=== PATIENT | male | born 1980 | race Caucasian/White ===

== ENCOUNTER → 2020-06-29 01:29 | Outpatient (CLI) | payer OTHER, SELFPAY ==
[2020-06-29 21:08] LABS: SARS-CoV-2 RNA PCR Negative
== END ==
PROVIDERS: PCP Family Medicine; Visit Provider Orthopaedic Surgery
DX: Z01.812 Encounter for preprocedural laboratory examination (principal); Z20.822 Contact with and (suspected) exposure to COVID-19
CPT/HCPCS: C9803; U0003; U0005

== ENCOUNTER 2020-06-30 00:52 | Day surgery (SDC) | payer OTHER, SELFPAY ==
[2020-06-28 14:00] VITALS: BMI 42.5
[2020-06-30] VITALS (9 sets, daily range): BP systolic 128–157; BP diastolic 69–96; PULSE 64–74; RESP 12–24; TEMP 36.5–37.2; O2SAT 94–100
--- NOTE | ~2020-06-30 | XR_ITS ---
XR surgery orthopedic DATE: 06/30/2020 17:02 INDICATION: ORIF fourth metacarpal fracture TECHNIQUE: AP and lateral spot C-arm images of the hand including the fourth metacarpal bone 4 seconds fluoroscopy time 0.4162 cGycm2 total DAP COMPARISON: 06/28/2020) FINDINGS: There is anatomic position and alignment at the transverse fracture of the midshaft of the fourth metacarpal following placement of a dorsal plate, secured by multiple posteroanteriorly direct ed screws. IMPRESSION: ORIF fourth metacarpal shaft fracture Reviewed, dictated and finalized at [facility]. Reviewed, dictated and finalized at location A.
[2020-06-30] MEDS: ACETAMINOPHEN 500 MG TABLET 1000 MG PO (13:00)
[2020-06-30] MEDS: KETOROLAC 15 MG/ML VIAL (*BKC) IV PUSH (13:09)
[2020-06-30] MEDS: LACTATED RINGERS 1,000 ML 30 ML IV CONT ×2 (13:10→16:04)
--- NOTE | 2020-06-30 14:02 | WPDANESEPPF ---
Anes - Initial Pre Proc Eval Procedure: Operation Date: 06/30/20 14:30 Proposed Procedures p Open Reduction Internal Fixation Of The Right Fourth Metacarpal - Dixon Lizarraga MD Date/Time: 06/30/20 14:02 Surgeon: Dixon Lizarraga MD Pre Op Diagnosis: Right 4th metacarpal fx Patient Data Age: 39 Gender: M Height: 6 ft 4 in Weight: 158.4 kg Last Vital Signs Temp 98.9 F 06/30/20 12:40 Pulse 64 06/30/20 12:40 Resp 16 06/30/20 12:40 BP 140/87 06/30/20 12:40 Pulse Ox 98 06/30/20 12:40 Allergies Allergy/AdvReac Type Severity Reaction Status Date / Time Penicillins Allergy Unknown Hives Verified 06/30/20 13:27 Home Medications Medication Instructions Recorded Confirmed Type rivaroxaban 10 mg tablet 10 mg PO DAILY 06/14/20 06/30/20 History Patient hx anesthesia problems: none Family hx anesthesia problems: none PMFSH Past Medical History Medical History (Updated 06/30/20 @ 14:02 by Abraham Adkins MD) BMI 32.0-32.9,adult H/O blood clots H/O traumatic brain injury had in the [employer] 2001 slipped on floor hitting head Inguinal hernia Family History Family History Father Diabetes mellitus Heart disease Hypertension Mother Obesity Asthma Sibling No problems noted. Social History Social History Smoking status: Never smoker Second hand tobacco smoke exposure: Yes Alcohol intake: current Drinks per week: 1 Substance use: never Substance use type: does not use Living arrangements: with family Additional occupation/education comments: [employer] Gender identity (if verbalized by the patient): Male Spiritual care concerns: No Anes - Eval Final PreProcedure Day of Procedure 06/30/20 14:02 Patient weight: morbidly obese Heart: regular rate and rhythm Lungs: clear to auscultation Airway: Mallampati scale class II Neurological: alert and oriented Last oral intake: >/= 8 hours ASA classification: III Emergent: no Anesthetic plan: proceed Anesthesia type and monitoring: general LMA and standard monitoring Informed Consent: The patient's anesthetic plan and its attendant risks and benefits were discussed with the patient/family/POA. Questions were solicited and answers provided to the satisfaction of the patient/family/POA.
--- NOTE | 2020-06-30 14:18 | WPDHPUPDATE1 ---
History and Physical Update Update Date/Time: 06/30/20 14:18 History and Physical has been reviewed, including an updated exam of the patient. There are NO changes in the patient's condition. Risks, benefits, and alternatives have been discussed and questions answered. Patient agrees to proceed with procedure.
[2020-06-30] MEDS: ceFAZolin SODIUM 1 GM VIAL 3 GM IV PUSH (14:45)
--- NOTE | 2020-06-30 16:12 | P.OP_ITS ---
Procedure Note - Detailed Date of procedure: 06/30/20 Pre-op diagnosis: Right 4th metacarpal fx Post-op diagnosis: same Procedure performed: ORIF right fourth metacarpal shaft fracture Description of procedure: The patient was identified and proper site identified. He was taken back to the operating room and transferred to the OR table placing him supine taking care to pad his torso and extremities. After general anesthetic induction and intubation, a nonsterile tourniquet was placed high in the right arm. The right arm was prepped and draped in usual sterile fashion. Extremity was exsanguinated and the tourniquet was inflated to 250 mmHg remaining up for about 50 minutes. Longitudinal incision was made dorsally over the fourth metacarpal shaft. Subcutaneous tissue was bluntly dissected protecting neurovascular structures. Extensor tendon was identified and retracted allowing access to the metacarpal shaft. There was some callus about the fracture site which was removed to allow for an anatomic reduction of the fracture. This was then secured with in appropriate length 2.0 plate from the Synthes hand set and secured with nonlocking and locking screws were following their position fluoroscopically. Overall reduction and hardware placement was assessed fluoroscopically and noted to be satisfactory. The wound was irrigated with sterile saline. Skin edges reapproximated with 4-0 Prolene suture and Steri-Strips were applied. The area around the metacarpal fracture at the surgical site was infiltrated with 5 mL of 1% plain lidocaine. Sterile dressing was applied. Tourniquet was released and a well-padded volar wrist splint was applied coming out to the metacarpal heads palmarly. He tolerated the procedure well. He was awakened, extubated, transferred to the [facility] and taken to recovery area in stable condition. There were no known intraoperative complications. Estimated blood loss was negligible. He received perioperative antibiotics. Anesthesia: GLMA Surgeon: Dixon Lizarraag MD Remote Recruiter: Shira Wheeler Estimated blood loss (mL): 1 Tourniquet time (min): 50 Drains: No Pathology: none sent Complications: No immediate complications Condition: stable Disposition: PACU
--- NOTE | 2020-06-30 16:18 | SUR.OPER ---
synthes hand set implants right hand 12 hole 2.0 plate 1 2.0x10mm cortex screw 1 2.0x15mm locking screw 1 2.0x13mm locking screw 1 2.0x16mm locking screw 1
[2020-06-30] MEDS: fentaNYL CITRATE INJ (*CRX) 100 MCG/2 ML VIAL 25 MCG IV PUSH ×6 (16:32→16:56)
== END 2020-06-30 18:19 | disposition home or self-care (01) ==
PROVIDERS: PCP Family Medicine; Visit Provider Orthopaedic Surgery
PROC: (CPT 25575; principal; 2020-06-30 14:30)
DX: S62.324A Displaced fracture of shaft of fourth metacarpal bone, right hand, initial encounter for closed fracture (principal); Z86.718 Personal history of other venous thrombosis and embolism; Z87.820 Personal history of traumatic brain injury; Z79.01 Long term (current) use of anticoagulants; E66.01 Morbid (severe) obesity due to excess calories; Z68.41 Body mass index [BMI] 40.0-44.9, adult; Y04.0XXA Assault by unarmed brawl or fight, initial encounter
CPT/HCPCS: 26615; A9270; C9803; J0690; J1100; J1885; J2250; J2405; J2704; J3010; J7120; U0003; U0005

== ENCOUNTER 2021-04-07 10:33 | Outpatient (CLI) | payer OTHER, SELFPAY ==
--- NOTE | ~2021-04-07 | XR_ITS ---
XR chest 2V DATE: 04/07/2021 10:45 INDICATION: Cough TECHNIQUE: PA and lateral views COMPARISON: May 03, 2017 two-view chest FINDINGS: Borderline heart size. No hilar or mediastinal enlargement. No pulmonary infiltrate or cons olidation, pleural effusion or pulmonary vascular congestion or pneumothorax. IMPRESSION: No active pulmonary disease Reviewed, dictated and finalized at location A. INSPECTOR IMPRESSION: No active pulmonary disease
[2021-04-07 10:57] LABS: Hematocrit 41.5 % (42.0-52.0); Hemoglobin 14.2 g/dL (14.0-18.0); Mean Corpuscular HGB Conc 34.2 g/dl (32-36); Mean Corpuscular Hemoglobin 29.2 pg (26-34); Mean Corpuscular Volume 85.4 fl (80-100); Mean Platelet Volume 8.8 fl (7.4-10.4); Platelet Count Result 253 k/mm3 (150-375); Red Blood Count 4.86 M/mm3 (4.6-6.20); Red Cell Distribution Width 13.4 % (11.5-14.5); White Blood Count 5.3 K/mm3 (4.5-10.0)
[2021-04-07 11:10] LABS: Alanine Aminotransferase 58 U/L (4-50); Albumin Level 4.4 g/dL (3.5-5.1); Alkaline Phosphatase 71 U/L (38-126); Anion Gap 7 mmol/L (8-16); Aspartate Amino Transferase 36 U/L (17-59); Bilirubin,Total 0.5 mg/dL (0.2-1.3); Blood Urea Nitrogen 20 mg/dL (9-20); Calcium 8.8 mg/dL (8.4-10.2); Carbon Dioxide 27 mmol/L (22-30); Chloride 104 mmol/L (98-107); Cholesterol 197 mg/dL (0-200); Estimated Glomerular Filt Rate > 60; Glucose 94 mg/dL (65-110); HDL Direct 42 mg/dL; Potassium 3.8 mmol/L (3.4-5.0); Sodium 138 mmol/L (137-145); Triglycerides 81 mg/dL (<150)
[2021-04-07 11:21] LABS: LDL Cholesterol Direct 123 mg/dL
[2021-04-07 11:41] LABS: Prostate Specific Antigen 0.4 ng/mL (< OR = 4.0)
== END 2021-04-07 10:34 | disposition home or self-care (01) ==
LOC: ANHIMG 10:36
PROVIDERS: PCP Family Medicine; Visit Provider Nurse Practitioner Family
DX: Z12.5 Encounter for screening for malignant neoplasm of prostate (principal); R05.9 Cough, unspecified; I10 Essential (primary) hypertension
CPT/HCPCS: 36415; 71046; 80053; 80061; 84153; 84443; 85027; G0103

== ENCOUNTER 2021-04-26 08:26 | Outpatient (CLI) | payer OTHER, SELFPAY ==
--- NOTE | 2021-04-26 09:11 | ECHO_ITS ---
Patient Info Name: Bassam Arciniega Age: 40 years : 1980 Gender: Male Ht: 75 in Wt: 339 lbs BSA: 2.92 m2 HR: 64 bpm BP: 148 / 102 mmHg Technical Quality: Fair Exam Date: 04/26/2021 9:30 AM Exam Location: [facility] Pulmonary Patient Status: Outpatient Admit Date: 04/26/2021 Staff Ordering Physician: Aaliyah Maurice NP Clinical Research Physician: Guy Pena RDCS, RT Attending Provider: Aaliyah Maurice NP Referring Physician: Kaylene CLEANING; Exam Type: CA echo doppler color flow Study Info Indications I10 - Essential (primary) hypertension Complete two-dimensional, color flow and Doppler transthoracic echocardiogram is performed. Strain analysis performed. Summary 1. Complete two-dimensional, color flow and Doppler transthoracic echocardiogram is performed. 2. Left ventricular chamber dimension is normal. 3. Left ventricular systolic function is normal, estimated at 60-65%. 4. There is mildly increased left ventricular wall thickness. 5. The left ventricular diastolic function is normal. 6. E/e' 7 is not elevated. 7. There is trace mitral valve regurgitation. 8. Dilated inferior vena cava with >50% collapse upon inspiration consistent with elevated right atrial pressure, 10 mmHg. Left Ventricle E/e' 7 is not elevated. Left ventricular chamber dimension is normal. Left ventricular systolic function is normal, estimated at 60-65%. There is mildly increased left ventricular wall thickness. The left ventricular diastolic function is normal. Right Ventricle Right ventricular systolic function is normal based on normal TAPSE 2.0 cm. Right ventricular chamber dimension is not well visualized. Left Atria Left atrial chamber dimension is normal. Right Atria Right atrial chamber dimension is normal. Aortic Valve The aortic valve is trileaflet. There is no aortic valve stenosis. There is no aortic valve regurgitation. Pulmonic Valve There is no pulmonic regurgitation. Mitral Valve There is no mitral valve stenosis. There is trace mitral valve regurgitation. Tricuspid Valve There is no tricuspid valve regurgitation. Pericardium/Pleural There is no pericardial effusion. Inferior Vena Cava Dilated inferior vena cava with >50% collapse upon inspiration consistent with elevated right atrial pressure, 10 mmHg. Aorta The aortic root size at the sinus of Valsalva is normal. Left Ventricular Outflow Tract Name Value Normal LVOT 2D LVOT Diameter 2.2 cm LVOT Doppler LVOT Peak Gradient 3 mmHg LVOT Mean Gradient 2 mmHg LVOT VTI 20 cm LVOT VTI/AV VTI Ratio 1.0 LVOT Stroke Volume 76 ml LVOT CO 4.5 l/min LVOT CI 1.5 l/min/m2 Mitral Valve Name Value Normal MV Doppler
--- NOTE | 2021-04-26 09:17 | EST_ITS ---
Patient Info Name: Bassam Arciniega Age: 40 years : 1980 Gender: Male Ht: 75 in Wt: 339 lbs BSA: 2.92 m2 HR: 70 bpm BP: 150 / 89 mmHg Heart Rhythm: Sinus Rhythm Exam Date: 04/26/2021 9:59 AM Exam Location: [facility] Stress Patient Status: Outpatient Admit Date: 04/26/2021 Staff Ordering Physician: Aaliyah Maurice NP Attending Provider: Aaliyah Maurice NP Exercise Technologist: Brianna Hughes CT Exercise Physician: Itz Lam DO Exam Type: CA stress test treadmill Study Info Indications R06.02 - Shortness of breath A treadmill exercise stress test was performed. Summary 1. 1. Negative Ramakrishna exercise stress test for ischemic ST changes by ECG criteria. 2. 2. Reduced functional capacity, achieving 10 METs of workload. 3. 3. Baseline hypertension with hypertensive response to exercise. 4. 4. Appropriate HR response to exercise. 5. 5. Appropriate HR recovery at 1 minute post exercise. 6. 6. No imaging with stress testing. 7. 7. Patient informed of the above results. Protocol: Ramakrishna Stress ECG Details Stage: REST Duration (min): 1 min : 57 sec Speed (mph): 0.0 Grade (%): 0 HR (bpm): 65 SBP (mmHg): 150 DBP (mmHg): 89 METS: --- Stage: REST Duration (min): 8 min : 12 sec Speed (mph): 0.0 Grade (%): 0 HR (bpm): 73 SBP (mmHg): 150 DBP (mmHg): 89 METS: --- Stage: STAGE 1 Duration (min): 1 min : 0 sec Speed (mph): 1.7 Grade (%): 10 HR (bpm): 94 SBP (mmHg): 150 DBP (mmHg): 89 METS: --- Stage: STAGE 1 Duration (min): 2 min : 0 sec Speed (mph): 1.7 Grade (%): 10 HR (bpm): 116 SBP (mmHg): 150 DBP (mmHg): 89 METS: --- Stage: STAGE 1 Duration (min): 3 min : 0 sec Speed (mph): 1.7 Grade (%): 10 HR (bpm): 117 SBP (mmHg): 180 DBP (mmHg): 67 METS: --- Stage: STAGE 2 Duration (min): 1 min : 0 sec Speed (mph): 2.5 Grade (%): 12 HR (bpm): 130 SBP (mmHg): 180 DBP (mmHg): 67 METS: --- Stage: STAGE 2 Duration (min): 2 min : 0 sec Speed (mph): 2.5 Grade (%): 12 HR (bpm): 141 SBP (mmHg): 175 DBP (mmHg): 88 METS: --- Stage: STAGE 2 Duration (min): 3 min : 0 sec Speed (mph): 2.5 Grade (%): 12 HR (bpm): 143 SBP (mmHg): 175 DBP (mmHg): 88 METS: --- Stage: STAGE 3 Duration (min): 1 min : 0 sec Speed (mph): 3.4 Grade (%): 14 HR (bpm): 154 SBP (mmHg): 217 DBP (mmHg): 99 METS: --- Stage: STAGE 3 Duration (min): 2 min : 0 sec Speed (mph): 3.4 Grade (%): 14 HR (bpm): 161 SBP (mmHg): 217 DBP (mmHg): 99 METS: --- Stage: STAGE 3 Duration (min): 3 min : 0 sec Speed (mph): 3.4 Grade (%): 14 HR (bpm): 172 SBP (mmHg): 212 DBP (mmHg): 82 METS: --- Stage: RECOVERY Duration (min): 0 min : 59 sec Speed (mph): 0.0 Grade (%): 0 HR (bpm): 145 SBP (mmHg):
--- NOTE | 2021-04-27 16:12 | WPDHOLTEREM ---
Holter/Event Monitor Holter/Event Monitor Date of procedure: 04/26/21 Holter/Event Procedure: 24 Hr Holter Monitor Indications: Palpitations Conclusion: 1. 24 hour holter monitor on 04/26/21. 2. Underlying rhythm is sinus rhythm. HR range 48-154 bpm; average HR 79 bpm. HR at 154 bpm was at 11:53. 3. There are 11 premature supraventricular complexes. No supraventricular tachycardia. 4. There are 12 premature ventricular complexes. No ventricular tachycardia. 5. No sinoatrial or atrioventricular blocks. No significant pauses greater than 2 seconds. 6. No symptoms available for correlation.
== END 2021-04-26 08:27 | disposition home or self-care (01) ==
PROVIDERS: PCP Family Medicine; Visit Provider Nurse Practitioner Family
DX: R00.2 Palpitations (principal); I10 Essential (primary) hypertension
CPT/HCPCS: 93017; 93225; 93226; 93306

== ENCOUNTER → 2021-05-09 09:55 | Outpatient (CLI) | payer SELFPAY ==
--- NOTE | ~2021-05-09 | XR_ITS ---
EXAMINATION: XR shoulder LT min 2V INDICATION: Left shoulder pain TECHNIQUE: Four views of the left shoulder are submitted. COMPARISON: None FINDINGS: Normal alignment. No fracture. There is mild glenohumeral and acromioclavicular joint osteo arthritis. Soft tissues are unremarkable. IMPRESSION: 1. No acute osseous abnormality. Reviewed, dictated and finalized at location F. [employer]
== END ==
PROVIDERS: PCP Family Medicine; Visit Provider Nurse Practitioner Family
DX: M19.012 Primary osteoarthritis, left shoulder (principal)
CPT/HCPCS: 73030

== ENCOUNTER → 2021-07-04 12:07 | Outpatient (CLI) | payer OTHER, SELFPAY ==
--- NOTE | ~2021-07-04 | MR_ITS ---
EXAMINATION: MR shoulder LT wo con DATE: 07/04/2021 12:57 INDICATION: Left shoulder pain TECHNIQUE: Magnetic resonance imaging (MRI) of the left shoulder was performed without intravenous co ntrast. Sequences included axial PD-weighted FS FSE, coronal oblique PD-weighted FS FSE, coronal obli que T2-weighted FS FSE, sagittal PD-weighted FS FSE, and sagittal T1-weighted SE. COMPARISON: None. FINDINGS: Coracoacromial arch: The acromion undersurface is curved in morphology (type II). The coracoacromial ligament is normal. M ild acromioclavicular osteoarthritis. Rotator cuff: Mild supraspinatus tendinopathy without discrete tear. The infraspinatus, teres minor and subscapular is tendons are normal. Normal rotator cuff muscle bulk and signal. Biceps tendon, glenoid labrum and glenohumeral cartilage: Long head of the biceps tendon is normal. Glenoid labrum is normal. Mild partial-thickness cartilage loss with smooth chondral surface along the posterior aspect of the glenoid and at the cephalad aspec t of the humeral head. Fluid: Small amount of fluid in the long head biceps tendon sheath which is disproportionate to the physiolo gic amount fluid in the glenohumeral joint consistent with mild tenosynovitis. No loose osteochondral bodies. No abnormal increased fluid signal in the subacromial/subdeltoid bursa to suggest bursitis. Bones: Normal marrow signal with no edema, fracture or abnormal marrow replacing process. IMPRESSION: 1. Mild supraspinatus tendinopathy without discrete tear. 2. Mild left glenohumeral and acromioclavicular osteoarthritis. 2. Mild bicipital tenosynovitis. Reviewed, dictated and finalized at location A.
== END ==
PROVIDERS: PCP Family Medicine; Visit Provider Nurse Practitioner Family
DX: M19.012 Primary osteoarthritis, left shoulder (principal); M75.22 Bicipital tendinitis, left shoulder
CPT/HCPCS: 73221

== ENCOUNTER 2024-09-04 11:40 | Outpatient (CLI) | payer OTHER, SELFPAY ==
--- NOTE | 2024-09-04 11:47 | ECG_ITS ---
Test Date: 2024-09-04 12:05:54 Measurements Intervals [place] Rate: 59 P: 13 AK: 178 QRS: -1 QRSD: 128 T: 4 QT: 394 QTc: 393 Interpretive Statements SINUS BRADYCARDIA INTRAVENTRICULAR CONDUCTION DELAY DELAYED PRECORDIAL R/S TRANSITION MINIMAL Q WAVES- HIGH LATERAL LEADS BORDERLINE ECG No previous ECG available for comparison Electronically Signed On 09-04-2024 12:50:40 CDT by Itz Lam D.O.
[2024-09-04 12:12] LABS: Basophils Absolute Auto 0.1 K/mm3 (0.0-0.1); Basophils Percent Auto 1.5 % (0.2-1.2); Eosinophils Absolute Auto 0.2 K/mm3 (0-0.3); Eosinophils Percent Auto 3.4 % (0-4.4); Hematocrit 42.4 % (42.0-52.0); Hemoglobin 14.6 g/dL (14.0-18.0); Immature Granulocyte Absolute 0.05 K/mm3 (0.00-0.031); Immature Granulocyte Percent A 1.1 % (0-0.5); Lymphocytes Absolute Auto 0.87 K/mm3 (0.9-3.2); Lymphocytes Percent Auto 18.3 % (18.3-44.2); Mean Corpuscular HGB Conc 34.4 g/dl (32-36); Mean Corpuscular Hemoglobin 29.3 pg (26-34); Mean Platelet Volume 8.9 fl (7.4-10.4); Monocytes Absolute Auto 0.5 K/mm3 (0.1-0.6); Monocytes Percent Auto 9.7 % (2.6-8.5); Neutrophils Absolute Auto 3.2 K/mm3 (1.3-6.7); Platelet Count Result 262 k/mm3 (150-375); Red Blood Count 4.99 M/mm3 (4.6-6.20); Red Cell Distribution Width 13.2 % (11.5-14.5); White Blood Count 4.8 K/mm3 (4.5-10.0)
[2024-09-04 12:21] LABS: Anion Gap 9 mmol/L (4-12); Blood Urea Nitrogen 20 mg/dL (9-20); Calcium 9.4 mg/dL (8.4-10.2); Carbon Dioxide 25 mmol/L (22-30); Chloride 103 mmol/L (98-107); Estimated Glomerular Filt Rate > 60; Glucose 89 mg/dL (65-110); Potassium 3.9 mmol/L (3.4-5.0); Sodium 137 mmol/L (137-145)
== END 2024-09-04 11:41 | disposition home or self-care (01) ==
LOC: ANHSURGERY 11:47
PROVIDERS: PCP Family Medicine; Visit Provider Surgery
DX: K42.0 Umbilical hernia with obstruction, without gangrene (principal); I10 Essential (primary) hypertension
CPT/HCPCS: 36415; 80048; 85025; 86850; 86900; 86901; 93005

== ENCOUNTER 2024-09-08 00:39 | Day surgery (SDC) | payer OTHER, SELFPAY ==
--- NOTE | 2024-09-03 14:29 | PC.NURSE ---
Report to the Outpatient Waiting Room, entrance under the green pavilion located off [facility], at time __1200 on date _09/08/24 . Planned Procedure Time: __2:00 PM .? Time changes happen often and if your time is changed the preop area will call you the afternoon before. - You and your visitor will be asked to self-screen and do not enter if you have any COVID symptoms. Please call surgeon if you need to reschedule. - A mask is optional within the hospital at this time. Patients may have clear liquids (water, carbonated beverages, clear teas, apple juice) until 3 hours prior to surgery ( 11:00 AM) with a maximum of 20 ounces. - No food from midnight until time of surgery and no smoking, or chewing tobacco (or any form of nicotine). No chewing gum, candy or mints. Take only the following medications with a SIP of water on the morning of surgery: NONE DO NOT STOP ANY OF YOUR OTHER PRESCRIPTION MEDICATIONS PRIOR TO SURGERY EXCEPT THE FOLLOWING Hold all vitamins and supplements for 3 days per anesthesiologist. Medications to discontinue per physician PT STATES HOLD XARELTO 2 DAYS PRE OP PRE LANE Date to take last dose 09/05/24 Please no make-up, nail cypriot, hairspray, perfume, deodorant, or body powder the day of surgery.? No jewelry (including any body piercings) or valuables the day of surgery, leave them at home.? Please take a shower or bath the night before, or the morning of, surgery with an antibacterial soap.? Wear comfortable, loose fitting clothing.? Children are encouraged to wear pajamas. - Jewelry must be removed prior to entering the operating room.? Rings and piercings that are not removed may be cut off. - The hospital will not accept responsibility for valuables.? - Please leave all valuables, including medications, at home the day of surgery. If you are going home after surgery, a licensed city route driver must drive you home.? - NO public transportation without another adult if you receive anesthesia. - We recommend that an adult stay with you for 24 hours following discharge. - We also recommend that you do not drive, make important decision, drink alcoholic beverages, or take any drugs that were not prescribed by your health care provider for at least 24 hours after your discharge time. For Pediatric surgeries, we recommend two adults accompany the child home. Follow any additional instructions given to you from your surgeon. Telephone instructions given to __PATIENT and asked if any additional questions and then verbalized understanding. Patient advised to call surgeon office or pre surgery nurse liaison [phone] if any additional questions.
[2024-09-03 14:40] VITALS: BMI 43.7
[2024-09-08] VITALS (8 sets, daily range): BP systolic 122–160; BP diastolic 67–95; PULSE 58–72; RESP 15–18; TEMP 36.3–36.9; O2SAT 95–100
[2024-09-08] MEDS: ACETAMINOPHEN 500 MG TABLET 1000 MG PO (13:10)
--- NOTE | 2024-09-08 13:11 | WPDANESEPPF ---
Anes - Initial Pre Proc Eval Procedure: Operation Date: 09/08/24 14:00 Proposed Procedures p Robotic Repair Incarcerated Umbilical Hernia with Mesh - Js Mendosa MD Date/Time: 09/08/24 13:11 Surgeon: Js Mendosa MD Pre Op Diagnosis: incarcerated umb hernia Patient Data Age: 43 Gender: M Height: 1.91 m Weight: 169 kg Last Vital Signs Temp 36.9 C 09/08/24 13:05 Pulse 65 09/08/24 13:05 Resp 16 09/08/24 13:05 BP 160/92 H 09/08/24 13:05 Pulse Ox 100 09/08/24 13:05 O2 Del Method Room Air 09/08/24 13:05 Allergies Allergy/AdvReac Type Severity Reaction Status Date / Time Penicillins Allergy Unknown Hives Verified 09/08/24 13:03 Home Medications ?Medication ?Instructions ?Recorded ?Confirmed ?Type rivaroxaban 20 mg tablet (Xarelto) See Rx Instructions .Route 01/20/24 09/08/24 Rx .COMPLEX #90 tabs diltiazem HCl 180 mg 180 mg PO HS 06/03/24 09/08/24 History capsule,extended release 24 hr, controlled (DILT-XR) lisinopril 10 mg tablet 10 mg PO HS 09/03/24 09/08/24 History Patient hx anesthesia problems: none Family hx anesthesia problems: none Results Review: All pre-operative results and documents have been reviewed as part of the pre-operative evaluation. [facility] Past Medical History Medical History (Updated 08/17/24 @ 09:50 by Chelly Varner CMA) Hypertension Abdominal pain Umbilical pain Cardiomegaly Excessive daytime sleepiness Wellness examination Work related injury Injury of right hand Pain of left shoulder joint on movement Encounter for screening for malignant neoplasm of prostate Encounter for screening for malignant neoplasm of prostate Elevated ALT measurement Sinusitis Palpitations H/O traumatic brain injury had in the [employer] 2001 slipped on floor hitting head H/O blood clots Inguinal hernia BMI 32.0-32.9,adult Surgical History Surgical History (Updated 08/17/24 @ 09:16 by Chelly Varner CMA) H/O left inguinal hernia repair 2014 Hx of retained foreign body fully removed 1998 Fracture of metacarpal of right hand, closed ORIF June 30, 2020 Family History Family History (Updated 08/17/24 @ 09:04 by Lee Ann Claros MA) Father Diabetes mellitus Heart disease Hypertension Mother Obesity Asthma Thyroid disorder Sibling No problems noted. Grandparent Carcinoma of colon Ovarian cancer Social History Social History (Updated 08/17/24 @ 09:05 by Lee Ann Claros MA) Smoking status: Never smoker Second hand tobacco smoke exposure: Yes Alcohol intake: current Drinks per week: 0 Alcohol use details: 3 DRINKS PER MONTH Substance use: never Substance use type: does not use Do You Feel Safe in your Home?: Yes Lack of Transportation: No Lack of Food: Never True Current Housing: I Have Housing Concerned About Future Housing: No Difficulty Paying Gas/Electric Bills: No Difficulty Paying for Meds: No Currently Unemployed: No Education: High School Diploma/GED Difficulty w/ Childcare or Family Care: No Living arrangements: with family Occupation/Education: occupation Additional occupation/education comments: [employer] Gender identity (if verbalized by the patient): Male Spiritual care concerns: No Agree to blood products: Yes Anes - Eval Final PreProcedure Day of Procedure 09/08/24 13:11 Patient weight: morbidly obese Heart: regular rate and rhythm Lungs: clear to auscultation Airway: Mallampati scale class III Neurological: alert and oriented Last oral intake: >/= 8 hours ASA classification: III Emergent: no Anesthetic plan: proceed Anesthesia type and monitoring: general ETT and standard monitoring Results Review: All pre-operative results and documents have been reviewed as part of the pre-operative evaluation. Informed Consent: The patient's anesthetic plan and its attendant risks and benefits were discussed with the patient/family/POA. Questions were solicited and answers provided to the satisfaction of the patient/family/POA.
[2024-09-08] MEDS: LACTATED RINGERS 1,000 ML 30 ML IV CONT ×2 (13:30→16:22)
[2024-09-08] MEDS: KETOROLAC 15 MG/ML VIAL (*BKC) IV PUSH (13:35)
--- NOTE | 2024-09-08 13:54 | WPDHPUPDATE1 ---
History and Physical Update Update Date/Time: 09/08/24 13:54 History and Physical has been reviewed, including an updated exam of the patient. There are NO changes in the patient's condition. Risks, benefits, and alternatives have been discussed and questions answered. Patient agrees to proceed with procedure.
[2024-09-08] MEDS: ceFAZolin 3 GM/D5W 100 ML 100 ML IVPB (14:07)
[2024-09-08] MEDS: BUPIVACAINE/EPINEPHRINE 0.5% 50 ML VIAL 30 ML INFILTRATE (14:49)
[2024-09-08] MEDS: fentaNYL CITRATE INJ (*CRX) 100 MCG/2 ML VIAL 25 MCG IV PUSH ×8 (16:28→17:00)
--- NOTE | 2024-09-08 16:35 | W.PM.PROC2 ---
Procedure Note - Detailed Date of Procedure 09/08/24 Pre-op Diagnosis incarcerated umb hernia Post-op Diagnosis Same Procedure Performed Robotic laparoscopic repair incarcerated umbilical hernia with 1.5 cm defect Surgeon Js Mendosa MD Publications Writer Jeniffer BANKS, Jess BANKS Anesthesia General and Local Indications Patient was helping move a refrigerator when he felt a pop in the umbilical area. He had pain and a tender nodule there. He was seen in the office and found to have an incarcerated umbilical hernia with a small, 1-1.5 cm, defect. He has a very large man and is taken to surgery now for robotic laparoscopic repair with mesh Findings Incarcerated umbilical hernia with 1.5 cm defect Description of Procedure Patient was taken to surgery and induced into general anesthesia. The abdomen is prepped and draped. Trocars were placed on the left side of the abdomen in the usual fashion. We started with an applied Medical optical 5 mm port and then placed the 8 mm robotic ports, finally switching the initial port to an 8 mm robotic port as well. The robot was then brought into the field. The camera was docked and targeted. Instruments were placed in the other port hurts and carefully positioned. The surgeon then went to the robotic console. There was a lot of properitoneal fat and this was what was incarcerated in the hernia. I started on the left side and carefully stripped the properitoneal fat from midline above and below as well as at the level of the umbilicus. I started at the cephalad end and then dissected all the way across. I then continued from a cephalad to caudad direction and the hernia defect and the incarcerated properitoneal fat were found. The incarcerated tissue was carefully reduced. The hernia defect was approximately 1.5 cm in size. I continued the dissection of the midline properitoneal fat on caudal until there was adequate room for mesh placement such that the mesh could be directly attached to the undersurface of the muscular abdominal wall. 0 Stratafix suture was then placed in the field. The hernia defect was closed. A 10 x [address] hernia mesh was then placed in the abdomen. It had been marked so the center was easily identifiable. I put the needle of the Stratafix through the center and then used the Stratafix to hold the mesh to the anterior abdominal wall oriented in the appropriate directions. I then continued using the Stratafix and secured the left-sided the mesh to the anterior abdominal wall. The mesh was now in adequate position. I used 2 0 V lock suture and started on the far side, the patient's right side, and ran the V lock suture circumferentially around the outer aspect of the mesh. This was done in a fashion to secure the mesh under a mild degree of tension directly under the repair. Once this was completed, I used some of the residual V lock suture to secure the caudal aspect of mesh to the anterior abdominal wall. Similarly, I used the remainder of the Stratafix suture to secure the cephalad aspect of the mesh to the anterior abdominal wall. When this was completed, all looked good. We then removed the needles from the abdomen. Re inspecting the repair, it was in good position and well secured. We then removed the instruments and undocked the robot. The trocars were used to evacuated CO2 from the abdominal cavity. Then the trocars were removed. The skin incisions were closed with running subcuticular 4-0 Monocryl skin suture. The wounds were dressed with Exofin surgical adhesive. Patient was awakened and taken to recovery in good condition. Sponge and needle counts were correct x2. Implants 10 x [address] hernia mesh Estimated Blood Loss -5 Packing No Pathology None sent Complications None Condition Stable Disposition PACU [facility] Billing Surgery - Charge Forward: Surgery Billing (Robotic laparoscopic repair incarcerated 1.5 cm umbilical hernia with mesh)
== END 2024-09-08 17:50 | disposition home or self-care (01) ==
PROVIDERS: PCP Family Medicine; Visit Provider Surgery
PROC: (CPT 49592; principal; 2024-09-08 14:00)
DX: K42.0 Umbilical hernia with obstruction, without gangrene (principal); G89.18 Other acute postprocedural pain; I10 Essential (primary) hypertension; N48.6 Induration penis plastica; G47.19 Other hypersomnia; R00.2 Palpitations; E66.01 Morbid (severe) obesity due to excess calories; Z68.42 Body mass index [BMI] 45.0-49.9, adult; Z79.01 Long term (current) use of anticoagulants; Z98.890 Other specified postprocedural states; Z87.718 Personal history of other specified (corrected) congenital malformations of genitourinary system; Z80.0 Family history of malignant neoplasm of digestive organs; Z80.41 Family history of malignant neoplasm of ovary; Z82.49 Family history of ischemic heart disease and other diseases of the circulatory system
CPT/HCPCS: 49592; S2900; A9270; C1781; J0690; J1100; J1885; J2003; J2250; J2405; J2704; J3010; J7030; J7120

== ENCOUNTER 2024-11-11 11:34 | Outpatient (CLI) | payer OTHER, SELFPAY ==
--- OUTSIDE RECORDS SUMMARY | 2024-11-11 10:30 | XMS_ITS | Encounter Summary ---
Author Organization [facility] Address [address] [place] [address] Care Team Providers Care Atm Manager Name Role Phone Juan M Bernal MD Primary Care Provider [phone] Reason for Referral * Laboratory Services (Routine) - Open Specialty Diagnoses / Procedures Referred By Contac t Referred To Contact Diagnoses Acute deep vein thrombosis (DVT) of proximal vein of lower extremity, unspecified laterality (CMS/HCC) Procedures PROTHROMBIN FACTOR II MUTATION ANALYSIS Josse Licona MD [address] [place] [address] Phone: tel: fax: Referral ID Status Reason Start Date Expiration Date Visits Re quested Visits Authorized [id number] Open 11/11/2024 12/12/2025 1 1 * Laboratory Services (Routine) - Open Specialty Diagnoses / Procedures Referred By Contac t Referred To Contact Diagnoses Acute deep vein thrombosis (DVT) of proximal vein of lower extremity, unspecified laterality (CMS/HCC) Procedures FACTOR V LEIDEN MUTATION Josse Licona MD [address] [place] [address] Phone: tel: fax: Referral ID Status Reason Start Date Expiration Date Visits Re quested Visits Authorized [id number] Open 11/11/2024 12/12/2025 1 1 * Radiology Services (Routine) - Closed Specialty Diagnoses / Procedures Referred By Contac t Referred To Contact Diagnoses Acute deep vein thrombosis (DVT) of proximal vein of lower extremity, unspecified laterality (CMS/HCC) Procedures US VENOUS DOPPLER LEG BILATERAL Josse Licona MD [address] [employer] [address] [place] [address] Phone: tel: fax: [place] [phone] Referral ID Status Reason Start Date Expiration Date V isits Requested Visits Authorized [id number] Closed [facility]TS 11/11/2024 12/12/2025 1 1 Reason for Visit * Reason Comments Establish Care Encounter Details Date Type Department Care Team (Late st Contact Info) Description 11/11/2024 10:30 AM CDT Office Visit [facility] [address] [place] [address] [address] [place] [address] Josse Licona MD [address] [facility] [address] [place] [address] Acute deep vein thrombosis (DVT) of proximal vein of lower extremity, unspecified laterality (CMS/HCC) (Primary Dx) Social History Tobacco Use Types Packs/Day Years Used Date Smoking Tobacco: Never Smokeless Tobacco: Never Tobacco Cessation:Counseling Given: Not Answered Alcohol Use Standard Drinks/Week Comments Not Currently 0 (1 standard drink = 0.6 oz pure alcohol) rare use- maybe one time a month Sex and Gender Information Value Date Recorded Sex Assigned at Not on file Legal Sex Male 3:29 PM CDT Gender Identity Not on file Sexual Orientation Not on file documented as of this encounter Last Filed Vital Signs Vital Sign Reading Time Taken Comments Blood Pressure 169/99 11/11/2024 10:40 AM CDT Pulse 83 11/11/2024 10:29 AM CDT Temperature 36.2 C (97.1 F) 11/11/2024 10:29 AM CDT Respiratory Rate 12 11/11/2024 10:29 AM CDT Oxygen Saturation 98% 11/11/2024 10:29 AM CDT Inhaled Oxygen Concentration - - Weight 172.4 kg (380 lb) 11/11/2024 10:29 AM CDT Height - - Body Mass Index - - documented in this encounter Progress Notes * Josse Licona MD - 11/11/2024 11:05 AM CDT Hematology-oncology consult Note Requesting Physician Juan M Bernal MD Primary Care Physician Juan M Bernal MD Problem list There is no problem list on file for this patient. Previous TREATMENT ? Measurable Disease ? Reason for Visit Bassam Arciniega is a 43 y.o. male who was referred for consultation for hypercoagulable state. History of present illness This is a pleasant 43-year-old obese male with history of hypertension was diagnosed withprovoked left lower extremity DVT after injury while playing judo in 2014. He was treated with Xarelto for 3-month duration with resolution of blood clot. His next episode of DVT was in 2015 but thistime was unprovoked involving the right lower extremity and was treated with 3 months of Xarelto aga in with resolution of blood clot. 6 months later patient have another episode of left lower extremity unprovoked DVT and was restarted on Xarelto that he is taking currently. He has no more episode of blood clot while he is on Xarelto. He was reportedly tested for factor V Leiden mutation and not sure if it was positive. He has gained 40 pound weight in 1 year duration after having his hernia surgery recently. There is a family history of blood clot in the father and his abdomen. Mother had blood clots in the legs. Denies any other new complaints. Past Medical History Past Medical History: Diagnosis Date Blood clot in vein Hernia, umbilical Surgical History Past Surgical History: Procedure Laterality Date HX HAND SURGERY Right 2020 Plate in right hand HX HERNIA INGUINAL REPAIR HX HERNIA UMBILICAL REPAIR Medications Current Outpatient Medications Medication Sig Dispense Refill lisinopriL (PRINIVIL) 10 mg tablet Take 10 mg by mouth daily. rivaroxaban (XARELTO) 20 mg Tablet Take 20 mg by mouth daily with supper. DILTIAZEM HCL ORAL Take 180 mg by mouth daily. No current facility-administered medications for this visit. Allergies Allergies Allergen Reactions Penicillins Hives Immunizations: There is no immunization history on file for this patient. Family History Family History Problem Relation Name Age of Onset Diabetes Father Social History Social History Tobacco Use Smoking status: Never Smokeless tobacco: Never Substance Use Topics Alcohol use: Not Currently Comment: rare use- maybe one time a month Review of Systems Constitutional: Patient did not mention fever; no night sweats; no anorexia; no weight loss; no fatique NEENT: Patient did not mention headache; no change in vision; no change in hearing; no sore throat;no dysphagia Respiratory: Patient did not mention shortness of breath; no pleuritic chest pain; no cough; no hemoptysis GI: Patient did not mention abdominal pain; no nausea; no vomiting; no diarrhea; no hematochezia; no melena : Patient did not mention dysuria; no frequency; no hesitancy; no hematuria FABRIC SOURCER: Musculosketetal: Patient did not mention bone pain; no arthralgia; no joint swelling; no myalgia; Skin: Patient did not mention pruritis; no rash; no petechiae; no ecchymoses Endocrine: Patient did not mention polydipsia; no polyuria; no unusual weight gain Neuro: Patient did not mention headache; no change in vision; no sensory changes; no muscle weakness; no confusion; no seizures Psych: Patient did not mention anxiety; no depression; Physical Exam Vitals: As per nursing note Constitutional: Well developed, well nourished, no acute distress, non-toxic appearance Teeth and gum. No signs of infection or swelling. Eyes: PERRL, conjunctiva normal HEENT: Atraumatic, external ears normal, nose normal, oropharynx moist, no pharyngeal exudates. no sinus tenderness Neck- normal range of motion, no tenderness, supple Respiratory: No respiratory distress, normal breath sounds, no rales, no wheezing Cardiovascular: Normal rate, normal rhythm, no murmurs, no gallops, no rubs GI: Soft, nondistended, normal bowel sounds, nontender, no splenomegaly, no hepatomegaly, no mass, no rebound, no guarding : No costovertebral angle tenderness Musculoskeletal: No edema, no tenderness, no deformities. Back- no tenderness Integument: Well hydrated, no rash, Digits and nails inspection normal Lymphatic: No lymphadenopathy noted Neurologic: Alert & oriented x 3, CN 2-12 normal, normal motor function, normal sensory function, no focal deficits noted Psychiatric: Speech and behavior appropriate ? labs No results found for this or any previous visit (from the past 24 hours). Pathology ? Imaging & Other Studies Performance Status? Assessment / Plan: ? Hypercoagulable state. Patient is a 43-year-old obese male who is otherwise in good health except history of hypertension who had recurrent bilateral lower extremity DVT. He has initial left lower extremity DVT after injury while playing the judo in 2014 and was treated with 3 months of Xarelto with resolution of the DVT. Patient had another episode of right lower extremity DVT in 2016 but this time was unprovoked. He was treated with 3 months of Xarelto with resolution of DVT. 6 months later patient had another left lower extremity DVT unprovoked in nature and was started onXarelto that he continues to take. Patient has a family history of blood clot in the father and mother as well. Clinically is asymptomatic. Patient told me that he was possibly tested for factor V Leiden mutation and may be positive but not sure. I will order bilateral lower extremity Doppler studies at this time and repeat test for the factor V Leiden and prothrombin gene mutation will be performed. He willcontinue Xarelto for long-term/lifelong duration given the recurrent nature of his DVT and most of them were unprovoked. I have recommended lifestyle modification including weight loss regular exercise and increase activity level. I have answered all the questions to patient satisfaction. Follow-upwith me in 3 weeks. Hypertension. He is on lisinopril and diltiazem. Thank you very much for allowing me to participate in Bassam Arciniega's evaluation and management. Please feel free to contact if I can be of any further assistance in your patient???s care requiring hematology or oncology evaluation. Sincerely, ? ? Josse Licona M.D. cell TOBACCO COUNSELING He is not a tobacco/nicotine user. Josse Licona MD ,11/11/2024 11:05 AM ? Total time spent 60 minutes, two third of the total time spent counseling patient [id number]. CC:?Juan M Bernal MD documented in this encounter Plan of Treatment Upcoming Encounters Date Type Department Care Team (Late st Contact Info) Description 12/07/2024 4:30 PM CDT Telephone Check Up [facility] - [place] [address] [place] [address] Josse Licona MD [address] [facility] [address] [place] [address] Scheduled Orders Name Type Priority Associated Diagnoses Orde r Schedule US VENOUS DOPPLER LEG BILATERAL Imaging Routine Acute deep vein thrombosis (DVT) of proximal vein of lower extremity, unspecified laterality (CMS/HCC) Expected: 11/18/2024, Expires: 11/11/2025 FACTOR V LEIDEN MUTATION Lab Routine Acute deep vein thrombosis (DVT) of proximal vein of lower extremity, unspecified laterality (CMS/HCC) Expected: 11/11/2024, Expires: 11/11/2025 PROTHROMBIN FACTOR II MUTATION ANALYSIS Lab Routine Acute deep vein thrombosis (DVT) of proximal vein of lower extremity, unspecified laterality (CMS/HCC) Expected: 11/11/2024, Expires: 11/11/2025 documented as of this encounter Visit Diagnoses Diagnosis Acute deep vein thrombosis (DVT) of proximal vein of lower extremity, unspecified laterality (CMS/HCC)- Primary documented in this encounter Care Teams Atm Manager Relationship Specialty Start Date End Date Juan M Bernal MD [address] [place] [id number] PCP - General Family Practice 11/11/24 documented as of this encounter
--- OUTSIDE RECORDS SUMMARY | 2024-11-11 11:50 | XMS_ITS | Clinical Summary ---
Author Organization [facility] Address [address] [place] [address] Care Team Providers Care Car Blocker Name Role Phone Armin Vu MD Primary Care Provider Unav ailable Source Comments [facility],non-owned Affiliates and Associated Physician Practices is amultiple site organization consisting of ambulatory clinics and hospital sitesin [place], [place], [place] and [place]. This disclosure is being madepursuant to the Care Everywhere program and may not contain all information available regarding this patient. Last updated 17.[facility] Allergies Active Allergy Reactions Criticality Noted Date Comments Penicillins 07/12/2010 Medications * Be aware that medications may not be up to date on this document. Alwaysverify current medications with the patient. XARELTO 20 MG tablet TK 1 T PO D WITH AN TU MEAL 1 12/07/2018 Active Family History Medical History Relation Name Comments Cancer - Skin, Melanoma Father Cancer Maternal Grandfather Cancer - Skin, Melanoma Maternal Grandmother Allergy (Severe) Mother Cancer Paternal Grandmother CVA Neg Hx Cancer - Skin, Non Melanoma Neg Hx Eczema Neg Hx Hemophilia Neg Hx Psoriasis Neg Hx Rashes/Skin Problems Neg Hx Relation Name Status Comments Father Maternal Grandfather Maternal Grandmother Mother Paternal Grandmother Social History Tobacco Use Types Packs/Day Years Used Date Smoking Tobacco: Never Smokeless Tobacco: Never Sex and Gender Information Value Date Recorded Sex Assigned at Not on file Legal Sex Male 7:19 PM PARTS CLERK Gender Identity Not on file Sexual Orientation Not on file Last Filed Vital Signs Vital Sign Reading Time Taken Comments Blood Pressure 140/80 05/23/2019 11:28 AM PARTS CLERK Pulse 99 05/23/2019 11:28 AM PARTS CLERK Temperature 36.8 C (98.3 F) 05/23/2019 11:28 AM PARTS CLERK Respiratory Rate 20 05/23/2019 11:28 AM PARTS CLERK Oxygen Saturation 97% 05/23/2019 11:28 AM PARTS CLERK Inhaled Oxygen Concentration - - Weight 154.2 kg (340 lb) 05/23/2019 11:28 AM PARTS CLERK Height 195.6 cm (6' 5) 05/23/2019 11:28 AM PARTS CLERK Body Mass Index 40.32 05/23/2019 11:28 AM PARTS CLERK Plan of Treatment Health Maintenance Due Date Last Done Comments COLOGUARD (AGES 45-75) - COL ON CA SCREENING 1978 COLON MONITORING 1978 COLONOSCOPY - COLON CA SCREENING 1978 CT COLONOGRAPHY - COLON CA SCREENING 1978 Colorectal Cancer Screening 1978 FIT - COLON CA SCREENING 1978 FLEX SIG - COLON CA SCREENING 1978 LIPID TESTING 1978 HIV SCREENING 1993 HEPATITIS C SCREENING 11/21/1996 DTAP/TDAP/TD VACCINES (1 - Tdap) 1997 HEPATITIS B VACCINE (1 of 3 - 19+ 3-dose series) 1997 HPV VACCINE (1 - 3-dose SCDM series) 2005 SCREENING FOR DIABETES 12/28/2018 COVID-19 VACCINE (1 - 2023-2 5 season) 2023 DEPRESSION SCREENING 03/18/2024 INFLUENZA VACCINE (#1) 2024 ZOSTER VACCINE (1 of 2) 2028 HIB VACCINE Aged Out No longer eligi ble based on patient's age to complete this topic MENINGOCOCCAL (Group B) VACC INE SHARED DECISION-MAKING Aged Out No longer eligibl e based on patient's age to complete this topic MENINGOCOCCAL GROUPS A/C/Y/W VACCINE Aged Out No longer eligible b ased on patient's age to complete this topic PNEUMOCOCCAL VACCINE Aged Out No long er eligible based on patient's age to complete this topic Insurance ANTHEM Care Teams Car Blocker Relationship Specialty Start Date End Date Armin Vu MD PCP - General Family Medicine 05/23/19
--- OUTSIDE RECORDS SUMMARY | 2024-11-11 11:50 | XMS_ITS | Clinical Summary ---
Author Organization [facility] Address [address] [place] [address] Care Team Providers Care Carpet Repairer Name Role Phone Juan M Bernal MD Primary Care Provider [phone] Allergies Active Allergy Reactions Criticality Noted Date Comments Penicillins Hives High 11/11/2024 Medications lisinopriL (PRINIVIL) 10 mg tablet Take 10 mg by mouth daily. 09/03/2024 Active rivaroxaban (XARELTO) 20 mg Tablet Take 20 mg by mouth daily with supper. 01/20/2024 Active DILTIAZEM HCL ORAL Take 180 mg by mouth daily. 06/03/2024 Active Active Problems No known active problems Encounters Date Type Department Care Team Description 11/11/2024 10:30 AM CDT Office Visit [facility] and [facility]ology - [place] [address] [place] [address] Josse Licona MD Acute deep vein thrombosis (DVT) of proximal vein of lower extremity, unspecified laterality (CMS/HCC) (Primary Dx) from Last 3 Months Family History Medical History Relation Name Comments Diabetes Father Relation Name Status Comments Brother Alive Father Alive Mother Alive Son 1 Alive Son 2 Alive Social History Tobacco Use Types Packs/Day Years [...] - - Body Mass Index - - Plan of Treatment Upcoming Encounters Date Type Department Care Team (Late st Contact Info) Description 12/07/2024 4:30 PM CDT Telephone Check Up [facility] - [place] [address] [facility] [address] [place] [address] Josse Licona MD [address] [facility] [address] [place] [address] Health Maintenance Due Date Last Done Comments DTAP/TDAP/TD VACCINES (1 - Tdap) 1997 HEPATITIS B VACCINES (1 of 3 - 19+ 3-dose series) 11/16 HPV VACCINES (1 - 3-dose SCDM series) 2005 COLORECTAL SCREENING 11/27/2023 Colorectal Cancer Screening 11/27/2023 FIT-DNA Q 3 years 11/27/2023 FIT/FOBT Q 1 year 11/27/2023 Flex Sig/CT Colonography Q 5 years 11/27/2023 Preventative Visit- Commercial 03/18/2024 INFLUENZA VACCINE (#1) 2024 Insurance [facility] OPEN ACCESS HMO Care Teams Carpet Repairer Relationship Specialty Start Date End Date Juan M Bernal MD [address] [place] [address] PCP - General Family Practice 11/11/24
--- OUTSIDE RECORDS SUMMARY | 2024-11-11 11:50 | XMS_ITS | Clinical Summary ---
Author Organization [facility] [address] Address [address] [place] [address] Care Team Providers Care Offset Press Operator Apprentice Name Role Phone Juan M Bernal MD Primary Care Provider Allergies Active Allergy Reactions Criticality Noted Date Comments Penicillins Rash Medium 07/12/2010 Rash Medications rivaroxaban (XARELTO) 20 mg tablet TK 1 T PO D WITH AN TU MEAL 12/07/2018 Active lisinopriL (PRINIVIL,ZESTR IL) 10 mg tablet Take 1 tablet (10 mg total) by mouth daily Active dilTIAZem XR (CARDIZEM CD,DILACOR XR) 180 mg 24 hr capsule Take 1 capsule (180 mg total) by mouth daily 90 capsule 2 04/10/2024 Active Active Problems Problem Noted Date Diagnosed Date Essential (primary) hypertension 09/01/2021 PSVT (paroxysmal supraventricular tachycardia) 0 09/01/2021 Hypercoagulable state 09/01/2021 Mixed hyperlipidemia 09/01/2021 History of recurrent deep vein thrombosis (DVT) 09/01/2021 Chronic anticoagulation 09/01/2021 Palpitations 09/01/2021 LVH (left ventricular hypertrophy) 09/01/2021 Encounters Date Type Department Care Team Description 10/16/2024 9:00 AM CDT Office Visit [facility] Cardiology at [address] [place] [address] Jason Saucedo MD PSVT (paroxysmal supraventricular tachycardia) (Primary Dx); Essential (primary) hypertension from Last 3 Months Surgical History Surgery Date Site/Laterality Comments FRACTURE SURGERY Medical History Medical History Date Comments Hx of blood clots Hypertension Palpitations Cardiomegaly Inguinal hernia Covid Family History Medical History Relation Name Comments Diabetes Father Heart disease Father Hypertension Father Asthma Mother Relation Name Status Comments Father Alive Mother Alive Social History Tobacco Use Types Packs/Day Years Used Date Smoking Tobacco: Never Sex and Gender Information Value Date Recorded Sex Assigned at Not on file Legal Sex Male 8:19 AM CDT Gender Identity Not on file Sexual Orientation Not on file Obstetrics History Last Filed Vital Signs Vital Sign Reading Time Taken Comments Blood Pressure 130/88 10/16/2024 8:58 AM CDT Pulse 80 10/16/2024 8:58 AM CDT Temperature 36.9 C (98.5 F) 02/10/2024 4:53 PM CRITICAL POWER TECHNICIAN Respiratory Rate 20 02/10/2024 4:53 PM CRITICAL POWER TECHNICIAN Oxygen Saturation 97% 10/16/2024 8:58 AM CDT Inhaled Oxygen Concentration - - Weight 170.5 kg (375 lb 14.4 oz) 10/16/2024 8:58 AM CDT Height 193 cm (6' 4) 10/16/2024 8:58 AM CDT Body Mass Index 45.76 10/16/2024 8:58 AM CDT Plan of Treatment Health Maintenance Due Date Last Done Comments Colon Cancer Screening-Colonoscopy 1978 Depression Screening 1978 Hepatitis C Screening 1978 DTaP/Tdap/Td Vaccine (1 - Tdap) 1989 Hepatitis B Screening 1996 Regular Well Visit/Exam 18-64 1996 HPV Vaccines (1 - 3-dose SCD M series) 2005 Covid-19 Vaccine (2023-2 5 season) 2023 09/14/2020, 08/24/2020 Influenza Vaccine (#1) 2024 6, 02/16/2015, 10/27/2014 Pneumococcal vaccine <65 Aged Out No longer eligible based on patient's age to complete this topic Insurance [employer] Address: [address] [place] [address] [employer] Care Teams Offset Press Operator Apprentice Relationship Specialty Start Date End Date Juan M Bernal MD PCP - General 06/14/20
== END 2024-11-11 11:35 | disposition home or self-care (01) ==
LOC: ANHLAB 11:34
PROVIDERS: PCP Family Medicine; Visit Provider Internal Medicine Hematology & Oncology
DX: I82.4Y3 Acute embolism and thrombosis of unspecified deep veins of proximal lower extremity, bilateral (principal)
CPT/HCPCS: 81240; 81241

== ENCOUNTER 2024-12-09 14:08 | Outpatient (CLI) | payer OTHER, SELFPAY ==
--- NOTE | ~2024-12-09 | US_ITS ---
EXAMINATION: US venous doppler [facility], 12/09/2024 14:27 CDT HISTORY: Acute DVT COMPARISON: None Technique: Castellon-scale and color Doppler images were attempted of the lower saphenofemoral junction, common femoral vein,superficial femoral vein, proximal deep femoral vein, proximal deep femoral vein, popliteal vein and posterior tibial veins. Findings: Deep Venous System:Normal flow, augmentation and compressibility. No echogenic thrombus identified. Superficial Venous SystemNo superficial thrombophlebitis. Soft tissues: Soft tissues are unremarkable. Impression: Negative for DVT. Reviewed, dictated and finalized at location A. Impression: Negative for DVT.
--- OUTSIDE RECORDS SUMMARY | 2024-12-09 14:13 | XMS_ITS | Clinical Summary ---
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 Respiratory Rate 20 02/10/2024 4:53 PM NURSING HOME DIRECTOR Oxygen Saturation 97% 10/16/2024 8:58 AM CDT [...] Screening 1996 Regular Well Visit/Exam 18-64 1996 Covid-19 Vaccine (3 - 2024-2 6 season) 2024 09/14/2020, 08/24/2020 Influenza Vaccine (#1) 2024 6, 02/16/2015, 10/27/2014 HPV Vaccines Aged Out No longer eligi ble based on patient's age to complete this topic Pneumococcal vaccine <65 Aged Out No longer eligible based on patient's age to complete this topic Insurance [employer] [employer] Address: [facility] [id number] [place] [address] [employer] Address: [facility] [id number] [place] [address] Care Teams Benefits Specialist Relationship Specialty Start Date End Date Juan M Benral MD PCP - General 06/14/20
--- OUTSIDE RECORDS SUMMARY | 2024-12-09 14:13 | XMS_ITS | Clinical Summary ---
Author Organization [facility] Keyla orlando Juanito Address [address] [place] [address] Care Team Providers Care Dry House Wheeler Name Role Phone Juan M Bernal MD Primary Care Provider [phone] Allergies Active Allergy Reactions Criticality Noted Date [...] Encounters Date Type Department Care Team Description 11/18/2024 Orders Only [facility] Oncology and Hematology [facility] [address] [place] [address] Josse Licona MD 11/17/2024 External Device Data [facility] ABSTRACTION Provider, Abstract 11/17/2024 External Device Data [facility] ABSTRACTION Provider, Abstract 11/17/2024 External Device Data [facility] ABSTRACTION Provider, Abstract 11/11/2024 10:30 AM CDT Office Visit [facility] Oncology and Hematology [facility] [address] [place] [address] Josse Licona MD Acute deep [...] Mass Index - - Plan of Treatment Health Maintenance Due Date Last Done Comments Pre-Diabetes and Diabetes Screening 1978 DTAP/TDAP/TD VACCINES (1 - Tdap) 1997 HEPATITIS B VACCINES (1 of 3 - 19+ 3-dose series) 1997 COLORECTAL SCREENING 11/27/2023 Colorectal Cancer Screening 11/27/2023 FIT-DNA Q 3 years 11/27/2023 FIT/FOBT Q 1 year 11/27/2023 Flex Sig/CT Colonography Q 5 years 11/27/2023 INFLUENZA VACCINE (#1) 2024 HPV VACCINES Aged Out No longer eligi ble based on patient's age to complete this topic Procedures Procedure Name Priority Date/Time Associated Diagnosis Comments FACTOR V LEIDEN MUTATION Routine 11/11/2024 12:46 PM CDT from Last 3 Months Results * FACTOR V LEIDEN MUTATION (11/11/2024 12:46 PM CDT) Blood us Josse Licona MD HEMATOLOGY ORDERABLES Final Res ult from Last [address] [place] [address] OPEN ACCESS HMO Care Teams Dry House Wheeler Relationship Specialty Start Date End Date Juan M Bernal MD [address] [place] [address] PCP - General Family Practice 11/11/24
--- OUTSIDE RECORDS SUMMARY | 2024-12-09 14:13 | XMS_ITS | Clinical Summary ---
Author Organization [employer] Address [address] [place] [address] Care Team Providers Care Residential Carpenter Name Role Phone Armin Vu MD Primary Care Provider Unav ailable Source Comments [facility],non-owned Affiliates and Associated Physician Practices is amultiple site organization consisting of ambulatory clinics and hospital sitesin [place], [place], [place] and [place]. This disclosure is being madepursuant to the Care Everywhere program and may not contain all information available regarding this patient. 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 Gender Identity Not on file Sexual Orientation Not on file Last Filed Vital Signs Vital Sign Reading Time Taken Comments Blood Pressure 140/80 05/23/2019 11:28 AM LAMINATING MACHINE OFFBEARER Pulse 99 05/23/2019 11:28 AM LAMINATING MACHINE OFFBEARER Temperature 36.8 C (98.3 F) 05/23/2019 11:28 AM LAMINATING MACHINE OFFBEARER Respiratory Rate 20 05/23/2019 11:28 AM LAMINATING MACHINE OFFBEARER Oxygen Saturation 97% 05/23/2019 11:28 AM LAMINATING MACHINE OFFBEARER Inhaled Oxygen Concentration - - Weight 154.2 kg (340 lb) 05/23/2019 11:28 AM LAMINATING MACHINE OFFBEARER Height 195.6 cm (6' 5) 05/23/2019 11:28 AM LAMINATING MACHINE OFFBEARER Body Mass Index 40.32 05/23/2019 11:28 AM LAMINATING MACHINE OFFBEARER Plan of Treatment Health Maintenance Due Date [...] of 3 - 19+ 3-dose series) 1997 SCREENING FOR DIABETES 12/28/2018 DEPRESSION SCREENING 03/18/2024 COVID-19 VACCINE (1 - 2023-2 5 season) 2024 INFLUENZA VACCINE (#1) 2024 ZOSTER VACCINE (1 of 2) 2028 HIB VACCINE Aged Out No longer eligi ble based on patient's age to complete this topic HPV VACCINE Aged Out No longer eligi ble [...] complete this topic Insurance [employer] Care Teams Residential Carpenter Relationship Specialty Start Date End Date Armin Vu MD PCP - General Family Medicine 05/23/19
--- OUTSIDE RECORDS SUMMARY | 2024-12-09 14:13 | XMS_ITS | Clinical Summary ---
Author Organization [facility] Address [address] [place] [id number] Care Team Providers Care Home Care Consultant Name Role Phone Armin Vu MD Primary Care Provider Unav ailable Social History Tobacco Use Types Packs/Day Years Used Date Smoking Tobacco: Never Assessed Sex and Gender Information Value Date Recorded Sex Assigned at Not on file Legal Sex Male 6:18 PM CDT Gender Identity Not on file Sexual Orientation Not on file Plan of Treatment Health Maintenance Due Date Last Done Comments Colorectal Cancer Screening Colonoscopy (10 Years) 1978 Annual Physical 1981 Hepatitis C 1996 DTaP, Tdap and Td Vaccines ( 1 - Tdap) 1997 Hepatitis B Vaccines (1 of 3 - 19+ 3-dose series) 1997 COVID-19 Vaccine (1 - 2023-2 5 season) 2024 HPV Vaccines Aged Out No longer eligi ble based on patient's age to complete this topic Meningococcal B Vaccine Aged Out No l onger eligible based on patient's age to complete this topic Meningococcal Vaccine Aged Out No sergio luis eligible based on patient's age to complete this topic Pneumococcal Vaccine: Pediat rics (0 to 5 Years) and At-Risk Patients (6 to 49 Years) Aged Out No longer eligible b ased on patient's age to complete this topic RSV Immunizations Under 20 Months Aged Out No longer eligible based on patient's age to complete this topic Insurance [employer] [facility] BLUE [facility] Care Teams Home Care Consultant Relationship Specialty Start Date End Date Armin Vu MD PCP - General FAMILY PRACTICE 01/13/18
== END 2024-12-09 14:09 | disposition home or self-care (01) ==
PROVIDERS: PCP Family Medicine; Visit Provider Internal Medicine Hematology & Oncology
DX: I82.4Y9 Acute embolism and thrombosis of unspecified deep veins of unspecified proximal lower extremity (principal)
CPT/HCPCS: 93970